=== PATIENT | female | born 1970 | race African-American/Black ===

== ENCOUNTER 2021-12-06 23:04 | Emergency (ER) | payer OTHER, SELFPAY ==
[2021-12-06] MEDS ORDERED: Boostrix 0.5 ML (Tdap) VIAL ONE (23:59)
[2021-12-06] MEDS ORDERED: Acetaminophen 500 MG TAB ONE (23:59)
[2021-12-06] MEDS ORDERED: Diazepam 5 MG TAB ONE (23:59)
[2021-12-07] MEDS ORDERED: Diazepam 10 MG/2 ML SYRINGE ONE
== END 2021-12-07 00:40 | disposition home or self-care (01) ==
LOC: ERS 23:04
DX: S50.02XA Contusion of left elbow, initial encounter (principal); S20.211A Contusion of right front wall of thorax, initial encounter; I10 Essential (primary) hypertension; V89.2XXA Person injured in unspecified motor-vehicle accident, traffic, initial encounter
CPT/HCPCS: 90471; 90715; 96372; J3360

== ENCOUNTER 2021-12-31 18:32 | Emergency (ER) ==
[2021-12-31] MEDS ORDERED: predniSONE 20 MG TAB ONE (18:56)
[2021-12-31] MEDS ORDERED: Albuterol Sulfate 2.5 mg/3 ml Neb ONE (19:30)
[2021-12-31] MEDS ORDERED: Albuterol Sulfate 2.5 mg/0.5 ml Neb ONE (19:30)
== END 2021-12-31 20:56 | disposition home or self-care (01) ==
LOC: ERS 18:32
DX: J45.901 Unspecified asthma with (acute) exacerbation (principal); I10 Essential (primary) hypertension
CPT/HCPCS: 71045; 93005; 94640; J7512; J7611